=== PATIENT | female | born 1940 | race Hispanic/Latino ===

== ENCOUNTER 2018-09-29 10:00 | Outpatient (RCR) | payer OTHER | END 2018-09-29 11:00 | disposition home or self-care (01) | LOC: PT 10:00 | PROVIDERS: ATTEND Physician Assistant Medical | DX: M25.512 Pain in left shoulder (principal); M25.511 Pain in right shoulder ==

== ENCOUNTER 2018-10-06 09:00 | Outpatient (RCR) | payer OTHER | END 2018-10-06 10:00 | disposition home or self-care (01) | LOC: PT 09:00 | PROVIDERS: ATTEND Physician Assistant Medical | DX: M25.519 Pain in unspecified shoulder (principal) ==